=== PATIENT | female | born 1960 | race Caucasian/White ===

== ENCOUNTER 2021-05-23 21:48 | Emergency (ER) | payer OTHER ==
[2021-05-23] MEDS ORDERED: Ativan 2 MG/1 ML VIAL IV ONE (21:57)
[2021-05-23] MEDS ORDERED: Catapres 0.1 MG PO ONE (21:58)
[2021-05-23] MEDS ORDERED: Sodium Chloride 0.9% 1000 ML 1,000 ML IV SCH (22:00)
[2021-05-23] MEDS ORDERED: Ativan 2 MG/1 ML VIAL ONE (22:07)
[2021-05-23] MEDS ORDERED: Catapres 0.1 MG ONE (22:07)
[2021-05-23] MEDS ORDERED: Sodium Chloride 0.9% 1000 ML 1,000 ML ONE (22:07)
[2021-05-23 22:21] LABS: Hematocrit 45.5 % (35-47); Hemoglobin 13.3 gm/dl (12.0-16.0); Mean Cell Volume 93.2 fl (78-100); Mean Corpuscular Hemoglobin 27.3 pg (26-32); Mean Corpuscular Hgb Concent. 29.2 g/dl (32-36); Mean Platelet Volume 9.9 fl (7.5-11.0); Platelet Count 536 K/mm3 (150-450); Red Blood Count 4.88 M/mm3 (4.1-5.4); Red Cell Distribution Width 15.3 % (11.5-14.0)
[2021-05-23 22:37] LABS: White Blood Count 32.6 K/mm3 (4.0-10.5)
[2021-05-23 22:41] LABS: ALBUMIN 4.2 g/dL (3.5-5.0); ALKALINE PHOSPHATASE 112 U/L (38-126); ANION GAP 14.2 MEQ/L (5-15); BLOOD UREA NITROGEN 13 mg/dL (7-17); CHLORIDE 99 mmol/L (98-107); Calcium 9.4 mg/dL (8.4-10.2); Carbon Dioxide 32 mmol/L (22-30); Creatinine 1 0.72 mg/dL (0.52-1.04); EST GLOMERULAR FILTRATION RATE > 60.0 ML/MIN; Glucose 352 mg/dL (74-106); MAGNESIUM 1.8 mg/dL (1.6-2.3); NT PRO BNP 1110 pg/mL (0-900); Potassium 3.8 mmol/L (3.5-5.1); SGOT/AST 37 U/L (14-36); SGPT/ALT 47 U/L (0-35); SODIUM 141 mmol/L (137-145); Total Protein 7.6 g/dL (6.3-8.2)
[2021-05-23 22:43] LABS: INFLUENZA A NEGATIVE (NEGATIVE); INFLUENZA B NEGATIVE (NEGATIVE)
[2021-05-23 22:43] LABS: VBG BASE EXCESS -1.4 (-2.0-2.0); VBG CARBOXYHEMOGLOBIN 4.2 % T HGB (0.0-6.9); VBG HCO3- 29.1 meq/L (22-28); VBG HEMOGLOBIN 13.8; VBG O2 SATURATION 49.4 (95-100); VBG POTASSIUM 3.8 (3.5-5.1)
[2021-05-23 22:44] LABS: VBG pH 7.18 (7.32-7.42)
[2021-05-23] MEDS ORDERED: Lasix 40 MG/4 ML IV ONE (22:46)
[2021-05-23] MEDS ORDERED: Lasix 40 MG/4 ML ONE (22:48)
[2021-05-23] MEDS ORDERED: HUMULIN R SQ ONE (22:53)
[2021-05-23] MEDS ORDERED: HUMULIN R ONE (23:05)
[2021-05-24 00:03] LABS: A-aADO2 155; ABG HEMOGLOBIN 13.4; ABG POTASSIUM 3.5 (3.5-5.1); ARTERIAL BLD GAS O2 SATURATION 99.1 % (95-100); ARTERIAL BLOOD GAS BASE EXCESS 1.6 (-2.0-2.0); ARTERIAL BLOOD GAS FIO2 100 %; ARTERIAL BLOOD GAS PO2 481 mmHg (75-100); ARTERIAL BLOOD GAS VENT MODE BiPAP; ARTERIAL BLOOD GAS pH 7.29 (7.35-7.45); CARBOXYHEMOGLOBIN 0.6 % THgb (0.0-6.9); HCO3- 29.8 (22-28); Methhemoglobin 0.4 % (1.4-1.5)
[2021-05-24 00:04] LABS: ABG SITE RIGHT RADIAL; ALLEN TEST OK? YES; ARTERIAL BLOOD GAS PCO2 62 mmHg (35-45)
[2021-05-24] MEDS ORDERED: ROCEPHIN 1 Gm-D5w 50 ml Bag** 1 G/50 ML IVPB IV STA (00:18)
[2021-05-24] MEDS ORDERED: ROCEPHIN 1 Gm-D5w 50 ml Bag** 1 G/50 ML IVPB IV ONE (00:23)
--- NOTE | 2021-05-24 00:25 | ERPHSYRPT ---
- History of Present Illness Time Seen by Provider: 05/23/21 21:55 Source: patient Exam Limitations: no limitations Patient Subjective Stated Complaint: Patient states " I was at the [employer] playing [employer] when I got up to go to bathroom and I started feeling really hot and then I just became SOB." Triage Nursing Assessment: Patient arrived to ED via ambulance for SOB. Patient A/O times 4. Patient able to follow directions without difficulty. Patient very pale in color and nailbeds pale with cap refill 4-5 seconds. Patient respiratory for shallow and tachypneic. Patient noted to be utilizing all accessory muscles to breath. Patient also noted to be diaphoretic upon arrival. Patient arrived wearing neb mask per EMS giving duoneb with 02 at 100%. Patient stated this has happened to her before but it has been awhile. Patient denies any Cardiac HX. Patient denies smoking at this time. EMS reports that upon arrival to scene patient was stating at 80% on room air. Lungs with wheezes and rhonchi throughout all lung [place] with very diiminshed air flow in bilateral lower bases. Patient also noted with audible wheezes in inspiratory and expiratory. Patient denies any cough or fevers. Patient stated she was feeling just fine up until getting up to go to bathroom. Apical pulse strong but tachy. RN sat with patient and educated her to focus on her breathing through her nose and out her mouth. Patient did very well and 02 applied per N/C at 4L and 02 sat 87-88%. 02 increased to 5L and patient seemed to tolerate with 02 sat increase to 91-93%. EMS reported BS resulted at 466. Patient denies being Diabetic. Patient told physician underwriter that she is related to Dr. Stark and that she had called him yesterday because she felt like she was becoming SOB and that she has allergies. Patient denies having any cough or nasal drainage. Patient denies any headaches or muscle aches. Patient states her appetite and fluid intake has been normal. Chon ballesteros denies any ABD pain or discomfort. Bilateral hand special services agent strong and equal. Patient neuro checks WNL. + radial and pedal pulses noted. Patient noted with no dependent edema. Physician History: Patient is a 61-year-old female who presents by ambulance with marked respir atory distress. She did have some shortness of breath and some cough yesterday she went to [facility] at night and got extremely acutely short of breath and the ambulance was called. She also had elevated blood pressures. She has been vaccinated for Covid her did of Covid approximately 1 year ago. There is no definite history of COPD but she is been a heavy smoker in the past Timing/Duration: yesterday Activities at Onset: none Severity of Dyspnea-Max: severe Severity of Dyspnea-Current: moderate Possible Cause: no prior episodes Modifying Factors: Improves With: albuterol inhaler, oxygen Associated Symptoms: anxiety, cough, heart racing Allergies/Adverse Reactions: seafood Allergy (Severe, Uncoded 05/24/21 00:18) Hx Tetanus, Diphtheria Vaccination/Date Given: No Hx Influenza Vaccination/Date Given: Yes Hx Pneumococcal Vaccination/Date Given: No Immunizations Up to Date: Yes Travel Risk - International Travel Have you traveled outside of the country in past 3 weeks: No - Coronavirus Screening Are you exhibiting any of the following symptoms?: No Close contact with a COVID-19 positive Pt in past 14-21 Days: No - Vaccine Status Have you recieved a Covid-19 vaccination: Yes [employer] 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 - Vaccination Dates Date of 2cond Vaccination (if applicable): 12/07/20 - Review of Systems Constitutional: No Fever, No Chills Eyes: No Symptoms Ears, Nose, & Throat: No Symptoms Respiratory: Cough, Dyspnea, Dyspnea on Exertion (RIOS), Wheezing Cardiac: Palpitations, No Chest Pain, No Edema, No Syncope Abdominal/Gastrointestinal: No Abdominal Pain, No Nausea, No Vomiting, No Diarrhea Genitourinary Symptoms: No Dysuria Musculoskeletal: No Back Pain, No Neck Pain Skin: No Rash Neurological: No Dizziness, No Focal Weakness, No Sensory Changes Psychological: No Symptoms Endocrine: No Symptoms All Other Systems: Reviewed and Negative - Past Medical History Pertinent Past Medical History: Yes Neurological History: No Pertinent History ENT History: No Pertinent History Cardiac History: Hypertension Respiratory History: No Pertinent History Endocrine Medical History: No Pertinent History Musculoskeletal History: No Pertinent History GI Medical History: No Pertinent History History: No Pertinent History Psycho-Social History: Anxiety Female Reproductive Disorders: No Pertinent History - Past Surgical History Past Surgical History: Yes Neuro Surgical History: No Pertinent History Cardiac: No Pertinent History Respiratory: No Pertinent History Gastrointestinal: No Pertinent History Genitourinary: No Pertinent History Musculoskeletal: No Pertinent History Female Surgical History: No Pertinent History - Social History Smoking Status: Former smoker Exposure to second hand smoke: No Drug Use: none Patient Lives Alone: Yes - Nursing Vital Signs Nursing Vital Signs: Initial Vital Signs Temperature 97.3 F 05/23/21 21:52 Pulse Rate 145 H 05/23/21 21:52 Respiratory Rate 32 H 05/23/21 21:52 Blood Pressure 202/115 05/23/21 21:52 O2 Sat by Pulse Oximetry 97 05/23/21 21:52 Pain Scale Pain Intensity 0 - Physical Exam General Appearance: severe distress Eye Exam: PERRL/EOMI Ears, Nose, Throat Exam: hearing grossly normal, normal ENT inspection Neck Exam: normal inspection, supple Respiratory Exam: respiratory distress, airway intact, crackles/rales, rhonchi, wheezing Abdominal/Gastrointestinal Exam: soft, No tenderness, No distention, No mass Extremity Exam: non-tender, normal range of motion, normal inspection, no calf tenderness, no pedal edema Neurologic Exam: alert, oriented x 3, agitation Skin Exam: cyanosis, pale SpO2 Interpretation: hypoxic, ABG ordered, O2 applied SpO2: 100 O2 Delivery: BiPap/CPAP - Course Nursing assessment & vital signs reviewed: Yes EKG Interpreted by Me: RATE (145), Sinus Tach, NORMAL AXIS, Non-specific ST Changes, Other (Poor R wave progression) - Radiology Exams Chest X-ray Interpretation: Teleradiologist Report (Moderate bilateral nonspecific pulmonary opacities consistent with pneumonia versus atypical pulmonary edema) Ordered Tests: Active Orders 24 hr Category Date Time Status EKG-ER Only STAT Care 05/23/21 21:53 Active Oxygen-ED Only Nasal Cannula 4 lpm Care 05/23/21 21:53 Active CHEST 1 VIEW (PORTABLE) Stat Exams 05/23/21 22:30 Taken CHEST WITH CONTRAST [CT] Stat Exams 05/23/21 22:43 Ordered ABG [ARTERIAL BLOOD GASES] Routine Lab 05/23/21 23:52 Completed CBC W DIFF Stat Lab 05/23/21 22:14 Completed CMP Stat Lab 05/23/21 22:14 Completed D-DIMER QUANTITATIVE Stat Lab 05/23/21 22:14 Completed INFLUENZA A+B SIDDHARTH Stat Lab 05/23/21 22:14 Completed Lactic Acid Stat Lab 05/23/21 22:15 Completed Lactic Acid Stat Lab 05/24/21 00:21 Completed MAGNESIUM Stat Lab 05/23/21 22:14 Completed Manual Differential NC Stat Lab 05/23/21 22:14 Completed NT PRO BNP Stat Lab 05/23/21 22:14 Completed POCT GLUCOSE Stat Lab 05/23/21 23:08 Completed TROPONIN Q3H Lab 05/23/21 22:14 Completed TROPONIN Q3H Lab 05/24/21 01:00 Ordered TROPONIN Q3H Lab 05/24/21 04:00 Ordered TROPONIN Q3H Lab 05/24/21 07:00 Ordered TROPONIN Q3H Lab 05/24/21 10:00 Ordered UA W/RFX UR CULTURE Stat Lab 05/24/21 00:10 Ordered VENOUS BLOOD GAS Stat Lab 05/23/21 22:15 Completed BiPap/CPAP STAT RT 05/23/21 22:46 Active Medication Summary Generic Name Dose Route Start Last Admin Trade Name Freq PRN Reason Stop Dose Admin Sodium Chloride 1,000 mls @ 50 mls/hr 05/23/21 22:00 05/23/21 22:33 Sodium Chloride 0.9% 1000 Ml IV 06/22/21 21:59 50 mls/hr .Q20H DIANA Administration Discontinued Medications Generic Name Dose Route Start Last Admin Trade Name Freq PRN Reason Stop Dose Admin Clonidine 0.1 mg 05/23/21 21:58 05/23/21 22:33 Catapres 0.1 Mg PO 05/23/21 21:59 0.1 mg STAT ONE Administration Clonidine Confirm 05/23/21 22:07 Catapres 0.1 Mg Administered 05/23/21 22:08 Dose 0.1 mg .ROUTE .STK-MED ONE Furosemide 40 mg 05/23/21 22:46 05/23/21 22:57 Lasix 40 Mg/4 Ml IV 05/23/21 22:47 40 mg STAT ONE Administration Furosemide Confirm 05/23/21 22:48 Lasix 40 Mg/4 Ml Administered 05/23/21 22:49 Dose 40 mg .ROUTE .STK-MED ONE Ceftriaxone Sodium/Dextrose 1 g in 50 mls @ 100 mls/hr 05/24/21 00:18 05/24/21 00:26 Rocephin 1 Gm-D5w 50 Ml Bag IV 05/24/21 00:47 100 ml/hr STAT STA 100 mls/hr Administration Ceftriaxone Sodium/Dextrose Confirm 05/24/21 00:23 Rocephin 1 Gm-D5w 50 Ml Bag Administered 05/24/21 00:24 Dose 1 g in 50 mls @ ud IV .STK-MED ONE Insulin Human Regular 5 unit 05/23/21 22:53 Humulin R SQ 05/23/21 22:54 STAT ONE Insulin Human Regular Confirm 05/23/21 23:05 Humulin R Administered 05/23/21 23:06 Dose 5 unit .ROUTE .STK-MED ONE Lorazepam 1 mg 05/23/21 21:57 05/23/21 22:33 Ativan 2 Mg/1 Ml Vial IV 05/23/21 21:58 1 mg STAT ONE Administration Lorazepam Confirm 05/23/21 22:07 Ativan 2 Mg/1 Ml Vial Administered 05/23/21 22:08 Dose 2 mg .ROUTE .STK-MED ONE Lab/Rad Data: Laboratory Result Diagrams 05/23/21 22:14 05/23/21 22:14 Laboratory Results 05/24/21 05/23/21 05/23/21 Range/Units 00:21 23:57 23:52 WBC (4.0-10.5) K/mm3 RBC (4.1-5.4) M/mm3 Hgb (12.0-16.0) gm/dl Hct (35-47) % MCV (78-100) fl MCH (26-32) pg MCHC (32-36) g/dl RDW (11.5-14.0) % Plt Count (150-450) K/mm3 MPV (7.5-11.0) fl Segmented Neutrophils (36.0-66.0) % Lymphocytes (Manual) (24-44) % Monocytes (Manual) (0.0-12.0) % Eosinophils (Manual) (0.00-3.0) % Platelet Estimate (NORMAL) RBC Morphology D-Dimer (215-500) ng/mL Puncture Site RIGHT RADIAL pCO2 62 H* (35-45) mmHg pO2 481 H* (75-100) mmHg pO2/FiO2 Ratio % Base Excess 1.6 (-2.0-2.0) O2 Saturation 98.0 (94-100) g/dF ABG pH 7.29 L (7.35-7.45) ABG HCO3 29.8 H* (22-28) ABG O2 Sat (Measured) 99.1 (95-100) % Nishant Test YES VBG pH (7.32-7.42) VBG pCO2 at Pat Temp (42-55) mm/Hg VBG pO2 at Pat Temp (25-40) mm/Hg VBG HCO3 (22-28) meq/L VBG O2 Sat (Tom) (95-100) VBG Base Excess (-2.0-2.0) VBG Hemoglobin VBG Carboxyhemoglobin (0.0-6.9) % T HGB A-a Gradient 155 a/A Ratio 0.76 Hemoglobin 13.4 Carboxyhemoglobin 0.6 (0.0-6.9) % THgb Methemoglobin 0.4 L (1.4-1.5) % POC Potassium (3.5-5.1) Temperature 37.0 C POC O2 Flow Rate 100 % Vent Mode BiPAP Inspiratory BiPAP 14 Expiratory BiPAP 8 Sodium (137-145) mmol/L Potassium 3.5 (3.5-5.1) mmol/L Chloride (98-107) mmol/L Carbon Dioxide (22-30) mmol/L Anion Gap (5-15) MEQ/L BUN (7-17) mg/dL Creatinine (0.52-1.04) mg/dL Estimated GFR ML/MIN Glucose (74-106) mg/dL POC Glucometer (74 to 106) mg/dL Lactic Acid 2.0 (0.4-2.0) Calcium (8.4-10.2) mg/dL Magnesium (1.6-2.3) mg/dL Total Bilirubin (0.2-1.3) mg/dL AST (14-36) U/L ALT (0-35) U/L Alkaline Phosphatase (38-126) U/L Troponin I (0.000-0.034) ng/mL NT-Pro-B Natriuret Pep (0-900) pg/mL Serum Total Protein (6.3-8.2) g/dL Albumin (3.5-5.0) g/dL Influenza Type A Ag (NEGATIVE) Influenza Type B Ag (NEGATIVE) SARS-CoV-2 (PCR) NEGATIVE (NEGATIVE) 05/23/21 05/23/21 05/23/21 Range/Units 23:08 22:15 22:15 WBC (4.0-10.5) K/mm3 RBC (4.1-5.4) M/mm3 Hgb (12.0-16.0) gm/dl Hct (35-47) % MCV (78-100) fl MCH (26-32) pg MCHC (32-36) g/dl RDW (11.5-14.0) % Plt Count (150-450) K/mm3 MPV (7.5-11.0) fl Segmented Neutrophils (36.0-66.0) % Lymphocytes (Manual) (24-44) % Monocytes (Manual) (0.0-12.0) % Eosinophils (Manual) (0.00-3.0) % Platelet Estimate (NORMAL) RBC Morphology D-Dimer (215-500) ng/mL Puncture Site pCO2 (35-45) mmHg pO2 (75-100) mmHg pO2/FiO2 Ratio 28.0 % Base Excess (-2.0-2.0) O2 Saturation (94-100) g/dF ABG pH (7.35-7.45) ABG HCO3 (22-28) ABG O2 Sat (Measured) (95-100) % Nishant Test VBG pH 7.18 L* (7.32-7.42) VBG pCO2 at Pat Temp 78 H* (42-55) mm/Hg VBG pO2 at Pat Temp 32 (25-40) mm/Hg VBG HCO3 29.1 H* (22-28) meq/L VBG O2 Sat (Tom) 49.4 L (95-100) VBG Base Excess -1.4 (-2.0-2.0) VBG Hemoglobin 13.8 VBG Carboxyhemoglobin 4.2 (0.0-6.9) % T HGB A-a Gradient a/A Ratio Hemoglobin Carboxyhemoglobin (0.0-6.9) % THgb Methemoglobin (1.4-1.5) % POC Potassium 3.8 (3.5-5.1) Temperature C POC O2 Flow Rate % Vent Mode Inspiratory BiPAP Expiratory BiPAP Sodium (137-145) mmol/L Potassium (3.5-5.1) mmol/L Chloride (98-107) mmol/L Carbon Dioxide (22-30) mmol/L Anion Gap (5-15) MEQ/L BUN (7-17) mg/dL Creatinine (0.52-1.04) mg/dL Estimated GFR ML/MIN Glucose (74-106) mg/dL POC Glucometer 248 H (74 to 106) mg/dL Lactic Acid 4.8 H (0.4-2.0) Calcium (8.4-10.2) mg/dL Magnesium (1.6-2.3) mg/dL Total Bilirubin (0.2-1.3) mg/dL AST (14-36) U/L ALT (0-35) U/L Alkaline Phosphatase (38-126) U/L Troponin I (0.000-0.034) ng/mL NT-Pro-B Natriuret Pep (0-900) pg/mL Serum Total Protein (6.3-8.2) g/dL Albumin (3.5-5.0) g/dL Influenza Type A Ag (NEGATIVE) Influenza Type B Ag (NEGATIVE) SARS-CoV-2 (PCR) (NEGATIVE) 05/23/21 05/23/21 05/23/21 Range/Units 22:14 22:14 22:14 WBC (4.0-10.5) K/mm3 RBC (4.1-5.4) M/mm3 Hgb (12.0-16.0) gm/dl Hct (35-47) % MCV (78-100) fl MCH (26-32) pg MCHC (32-36) g/dl RDW (11.5-14.0) % Plt Count (150-450) K/mm3 MPV (7.5-11.0) fl Segmented Neutrophils (36.0-66.0) % Lymphocytes (Manual) (24-44) % Monocytes (Manual) (0.0-12.0) % Eosinophils (Manual) (0.00-3.0) % Platelet Estimate (NORMAL) RBC Morphology D-Dimer 1461 H* (215-500) ng/mL Puncture Site pCO2 (35-45) mmHg pO2 (75-100) mmHg pO2/FiO2 Ratio % Base Excess (-2.0-2.0) O2 Saturation (94-100) g/dF ABG pH (7.35-7.45) ABG HCO3 (22-28) ABG O2 Sat (Measured) (95-100) % Nishant Test VBG pH (7.32-7.42) VBG pCO2 at Pat Temp (42-55) mm/Hg VBG pO2 at Pat Temp (25-40) mm/Hg VBG HCO3 (22-28) meq/L VBG O2 Sat (Tom) (95-100) VBG Base Excess (-2.0-2.0) VBG Hemoglobin VBG Carboxyhemoglobin (0.0-6.9) % T HGB A-a Gradient a/A Ratio Hemoglobin Carboxyhemoglobin (0.0-6.9) % THgb Methemoglobin (1.4-1.5) % POC Potassium (3.5-5.1) Temperature C POC O2 Flow Rate % Vent Mode Inspiratory BiPAP Expiratory BiPAP Sodium 141 (137-145) mmol/L Potassium 3.8 (3.5-5.1) mmol/L Chloride 99 (98-107) mmol/L Carbon Dioxide 32 H (22-30) mmol/L Anion Gap 14.2 (5-15) MEQ/L BUN 13 (7-17) mg/dL Creatinine 0.72 (0.52-1.04) mg/dL Estimated GFR > 60.0 ML/MIN Glucose 352 H (74-106) mg/dL POC Glucometer (74 to 106) mg/dL Lactic Acid (0.4-2.0) Calcium 9.4 (8.4-10.2) mg/dL Magnesium 1.8 (1.6-2.3) mg/dL Total Bilirubin 0.50 (0.2-1.3) mg/dL AST 37 H (14-36) U/L ALT 47 H (0-35) U/L Alkaline Phosphatase 112 (38-126) U/L Troponin I 0.058 H* (0.000-0.034) ng/mL NT-Pro-B Natriuret Pep 1110 H (0-900) pg/mL Serum Total Protein 7.6 (6.3-8.2) g/dL Albumin 4.2 (3.5-5.0) g/dL Influenza Type A Ag (NEGATIVE) Influenza Type B Ag (NEGATIVE) SARS-CoV-2 (PCR) (NEGATIVE) 05/23/21 05/23/21 Range/Units 22:14 22:14 WBC 32.6 H* (4.0-10.5) K/mm3 RBC 4.88 (4.1-5.4) M/mm3 Hgb 13.3 (12.0-16.0) gm/dl Hct 45.5 (35-47) % MCV 93.2 (78-100) fl MCH 27.3 (26-32) pg MCHC 29.2 L (32-36) g/dl RDW 15.3 H (11.5-14.0) % Plt Count 536 H (150-450) K/mm3 MPV 9.9 (7.5-11.0) fl Segmented Neutrophils 80 H (36.0-66.0) % Lymphocytes (Manual) 12 L (24-44) % Monocytes (Manual) 5 (0.0-12.0) % Eosinophils (Manual) 3 (0.00-3.0) % Platelet Estimate NORMAL (NORMAL) RBC Morphology NORMAL D-Dimer (215-500) ng/mL Puncture Site pCO2 (35-45) mmHg pO2 (75-100) mmHg pO2/FiO2 Ratio % Base Excess (-2.0-2.0) O2 Saturation (94-100) g/dF ABG pH (7.35-7.45) ABG HCO3 (22-28) ABG O2 Sat (Measured) (95-100) % Nishant Test VBG pH (7.32-7.42) VBG pCO2 at Pat Temp (42-55) mm/Hg VBG pO2 at Pat Temp (25-40) mm/Hg VBG HCO3 (22-28) meq/L VBG O2 Sat (Tom) (95-100) VBG Base Excess (-2.0-2.0) VBG Hemoglobin VBG Carboxyhemoglobin (0.0-6.9) % T HGB A-a Gradient a/A Ratio Hemoglobin Carboxyhemoglobin (0.0-6.9) % THgb Methemoglobin (1.4-1.5) % POC Potassium (3.5-5.1) Temperature C POC O2 Flow Rate % Vent Mode Inspiratory BiPAP Expiratory BiPAP Sodium (137-145) mmol/L Potassium (3.5-5.1) mmol/L Chloride (98-107) mmol/L Carbon Dioxide (22-30) mmol/L Anion Gap (5-15) MEQ/L BUN (7-17) mg/dL Creatinine (0.52-1.04) mg/dL Estimated GFR ML/MIN Glucose (74-106) mg/dL POC Glucometer (74 to 106) mg/dL Lactic Acid (0.4-2.0) Calcium (8.4-10.2) mg/dL Magnesium (1.6-2.3) mg/dL Total Bilirubin (0.2-1.3) mg/dL AST (14-36) U/L ALT (0-35) U/L Alkaline Phosphatase (38-126) U/L Troponin I (0.000-0.034) ng/mL NT-Pro-B Natriuret Pep (0-900) pg/mL Serum Total Protein (6.3-8.2) g/dL Albumin (3.5-5.0) g/dL Influenza Type A Ag NEGATIVE (NEGATIVE) Influenza Type B Ag NEGATIVE (NEGATIVE) SARS-CoV-2 (PCR) (NEGATIVE) - Progress Progress: improved Air Movement: fair Blood Culture(s) Obtained: Yes Antibiotics given: Yes Discussed with : Per Will see patient in: hospital (full admit) - Departure Departure Disposition: In-patient Admission Clinical Impression: Bilateral pneumonia Condition: Serious Critical Care Time: No Referrals: MULUGETA ACOSTA MD [Primary Care Provider] - Instructions: Shortness of Breath (Dyspnea) (DC), Pneumonia, Adult (DC)
[2021-05-24 00:40] LABS: Eosinophil 3 % (0.00-3.0); Lymphocytes 12 % (24-44); Monocyte 5 % (0.0-12.0); Neutrophils 80 % (36.0-66.0); Total Cells Counted 100
[2021-05-24 00:41] LABS: Platelet Estimate NORMAL (NORMAL)
[2021-05-24] MEDS ORDERED: HUMALOG SQ PRN (01:03)
[2021-05-24 01:04] LABS: Appearance SLIGHTLY CLOUDY (CLEAR); Bacteria FEW /HPF (NEGATIVE); Bilirubin NEGATIVE (NEGATIVE); Blood SMALL Ery/ul (0-5); Glucose 50 mg/dL (NEGATIVE); Ketones NEGATIVE (NEGATIVE); Leukocyte Esterase TRACE (NEGATIVE); Mucus SLIGHT /HPF (NEGATIVE); Nitrite NEGATIVE (NEGATIVE); Protein,Urine Dip 100 (Negative); RBC 0-2 /HPF (0-2); Specific Gravity 1.008 (1.005-1.025); Urobilinogen NEGATIVE mg/dL (0-1)
[2021-05-24] MEDS ORDERED: Sodium Chloride 0.9% 1000 ML 1,000 ML IV SCH (01:15)
[2021-05-24] MEDS ORDERED: Lopressor 25MG Tab PO ONE (02:18)
[2021-05-24] MEDS ORDERED: BABY ASPIRIN 81 MG CHEW ONE (02:19)
[2021-05-24] MEDS ORDERED: Lopressor 25MG Tab ONE (02:19)
[2021-05-24] MEDS ORDERED: BABY ASPIRIN 81 MG CHEW PO ONE (02:21)
[2021-05-24] MEDS ORDERED: PROVENTIL 2.5 MG/3 ML NEB IH SCH (03:00)
[2021-05-24 03:10] VITALS: BP 129/96; PULSE 98; O2SAT 98
[2021-05-24] MEDS ORDERED: solu-MEDROL 60 MG, Sterile H2O 10 ml 2 ML IV SCH ×2 (06:00)
[2021-05-24] MEDS ORDERED: LEVOFLOXACIN 750MG/150ML D5W 750 MG/150 ML BAG IV SCH (10:00)
[2021-05-24] MEDS ORDERED: Lasix 40 MG/4 ML IV SCH (10:00)
[2021-05-24] MEDS ORDERED: ENOXAPARIN SODIUM SQ SCH (10:00)
[2021-05-24] MEDS ORDERED: ROCEPHIN 1 Gm-D5w 50 ml Bag** 1 G/50 ML IVPB IV SCH (10:00)
--- NOTE | 2021-05-24 10:15 | XRAY ---
Exam: AP upright portable chest film from 05/23/2021. Comparison: None. Indication: Shortness of breath; testing for Covid -19. Patient is smoker. Wheezing. Findings: 2 portable AP images were obtained. The heart size appears within normal limits for this AP portable technique. There is moderate diffuse bilateral vascular/interstitial congestion. Underlying groundglass infiltrates within the lung bases cannot be excluded. The lung apices are relatively clear. Minimal scattered plate atelectasis is seen within the right midlung field, right lung base, and lateral left midlung field. There is no pneumothorax. There appears to be a 2.9 cm soft tissue lung nodule within the left lower lung field inferior lateral to the left hilum. The possibility of some pleural fluid within the posterior costophrenic angles cannot be excluded or confirmed, particularly at the left lung base. No acute osseous process is seen. Impression: 1. Abnormal exam. Diffuse bilateral interstitial opacities are seen, most pronounced throughout the lower 80% of the right lung field and the lower half of the left lung field. Underlying pneumonia cannot be excluded, although this could reflect pulmonary edema as well. 2. In addition, there appears to be a moderate sized oval soft tissue nodule within the left lower lung field, as discussed above. 3. Minimal scattered bibasilar linear atelectasis is seen.
== END 2021-05-24 03:30 | disposition short-term general hospital (02) ==
LOC: ED 21:48
DX: J18.9 Pneumonia, unspecified organism (principal); R06.02 Shortness of breath; I10 Essential (primary) hypertension; R05 Cough; Z20.828 Contact with and (suspected) exposure to other viral communicable diseases
CPT/HCPCS: 36415; 36600; 71045; 80053; 81001; 82375; 82803; 82805; 82947; 83605; 83735; 83880; 84484; 85025; 85379; 87040; 87086; 87400; 93005; 94002; 96374; 96375; 99285; U0003; J0696; J1815; J1940; J2060; A9270-GY

== ENCOUNTER 2025-06-04 13:09 | Emergency (ER) | payer MEDICARE ==
[2025-06-04 13:30] VITALS: PULSE 105; TEMP 97.8
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
[2025-06-04 13:41] LABS: BASOPHIL % 0.3 % (0.1-1.2); Basophil (Absolute #) 0.03 x10^3/uL (0.01-0.08); Eosinophil (Absolute #) 0.21 x10^3/uL (0.04-0.36); Hematocrit 46.9 % (34.1-44.9); Hemoglobin 14.8 g/dL (11.2-15.7); IMMATURE GRAN # 0.05 x10^3u/L (0.001-0.031); IMMATURE GRAN % 0.6 % (0.001-0.429); Lymphocyte (Absolute #) 1.54 x10^3/uL (1.18-3.74); Mean Corpuscular Hemoglobin 31.1 pg (25.6-32.2); Mean Corpuscular Hgb Concent. 31.6 g/dL (32.2-35.5); Monocyte (Absolute #) 0.28 x10^3/uL (0.24-0.86); NUCLEATED RBC # 0.00 x10^3u/L (0.00-0.012); NUCLEATED RBC % 0.0 % (0.00-0.2); Platelet Count 228 x10^3/uL (182-369); Red Blood Count 4.76 x10^6/uL (3.93-5.22); White Blood Count 8.6 x10^3/uL (3.98-10.04)
[2025-06-04 14:08] LABS: Calcium 8.9 mg/dL (8.4-10.2); Carbon Dioxide 28.0 mmol/L (22-30); Creatinine 1 0.55 mg/dL (0.52-1.04); EST GLOMERULAR FILTRATION RATE 100.4 ML/MIN; Glucose 183.0 mg/dL (74-106); Potassium 3.7 mmol/L (3.5-5.1); SGOT/AST 26.0 U/L (14-36); SGPT/ALT 15.0 U/L (0-35); Total Protein 6.3 g/dL (6.3-8.2)
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
[2025-06-04] MEDS ORDERED: TYLENOL EXTRA STRENGTH 500 MG ONE (14:31)
[2025-06-04] MEDS: TYLENOL EXTRA STRENGTH 500 MG PO STA (14:32)
[2025-06-04 14:34] VITALS: BP 188/104; O2SAT 93
== END 2025-06-04 15:21 | disposition home or self-care (01) ==
LOC: ED 13:09
DX: S00.03XA Contusion of scalp, initial encounter (principal); M54.50 Low back pain, unspecified; Z79.01 Long term (current) use of anticoagulants; V43.52XA Car driver injured in collision with other type car in traffic accident, initial encounter